=== PATIENT | female | born 1985 | race Hispanic/Latino ===

== ENCOUNTER 2018-04-16 18:58 | Emergency (ER) | payer MEDICAID, SELFPAY ==
[2018-04-16 19:37] LABS: Hemoglobin 8.9 g/dL (12.0-16.0); Mean Corpuscular HGB CONC 31.4 g/dL (32.0-36.0); Mean Corpuscular Volume 66.7 fL (78.0-98.0); Mean Platelet Volume 10.7 fL (7.4-10.4); Platelet Count 257 thou/uL (130-400); RBC Distribution Width 16.9 % (11.5-14.5); Red Blood Cell (RBC) Count 4.23 mill/uL (4.20-5.40); White Blood Cell (WBC) Count 8.9 thou/uL (4.8-10.8)
[2018-04-16 19:46] LABS: BHCG - Serum Negative (NEGATIVE); Pregs Control Background? CLEAR/WHITE (CLR/WHITE); Pregs Control Bar Appear? YES (CONTROL BAR)
[2018-04-16 19:53] LABS: #Eosinphils 0.1 thou/uL (0.0-0.7); #Lymphocytes 2.2 thou/uL (1.20-3.40); #Monocytes 0.5 thou/uL (0.11-0.59); #Neutrophils 6.1 thou/uL (1.40-6.50); %Basophils 0.5 % (0.0-1.0); %Eosinophils 1.1 % (0.0-10.0); %Lymphocytes 24.4 % (21.0-51.0); %Monocytes 5.2 % (0.0-10.0); %Neutrophils 68.9 % (42.0-75.0); Anisocytosis SLIGHT = 6-15 cells (100X) (0-5/hpf); Hypochromia SLIGHT = 6-15 cells (100X) (0-5/hpf); MDiff Complete? YES; Microcytosis SLIGHT = 6-15 cells (100X) (0-5/hpf); Ovalocytes SLIGHT = 2-5 cells (100X) (0-1/hpf); PLT Morphology Comment Appears Adequate; Tear Drops SLIGHT = 2-5 cells (100X) (0-1/hpf)
[2018-04-16 19:56] LABS: ALT (SGPT) 20 U/L (8-55); AST (SGOT) 20 U/L (5-34); Albumin 4.3 g/dL (3.5-5.0); Alkaline Phosphatase 105 U/L (40-150); Anion Gap 10 mmol/L (10-20); BUN (Urea Nitrogen) 12 mg/dL (7.0-18.7); Bilirubin, Total 0.4 mg/dL (0.2-1.2); Calc. Creatinine Clearance 0 mL/min (70-130); Calcium 9.4 mg/dL (7.8-10.44); Carbon Dioxide 25 mmol/L (22-29); Chloride 104 mmol/L (98-107); Estimated GFR-MDRD Greater than 90; Globulin 3.8 g/dL (2.4-3.5); Glucose 131 mg/dL (70-105); Lipase 27 U/L (8-78); Potassium 3.6 mmol/L (3.5-5.1); Protein, Total 8.1 g/dL (6.0-8.3); Sodium 135 mmol/L (136-145)
[2018-04-16 20:03] LABS: Bilirubin Negative (Negative); Blood, Urine Moderate (Negative); Clarity CLOUDY (Clear); Glucose, Urine (Dipstick) Negative (Negative); Leukocyte Large (Negative); Nitrite Negative (Negative); Protein, Urine (Dipstick) 30 mg/dL (Neg-Trace); Specific Gravity, Urine 1.022 (1.002-1.036); Urobilinogen 0.2 mg/dL (0.2-1.0)
[2018-04-16 20:06] LABS: Bacteria/HPF 2+ HPF (None Seen); Hyaline Casts/LPF 0-3 HYALINE CAST LPF (0-3 Hyaline); Pathc Cast-AUWi Flag 0.14 (0-2.49); WBC/HPF 21-50 HPF (0-3)
[2018-04-16 20:10] LABS: Yeast-AUWi Flag 85.9 (0-25.0)
[2018-04-16 20:25] LABS: Yeast-All Forms Rare HPF (None Seen)
== END 2018-04-16 22:15 | disposition home or self-care (01) ==
LOC: ERS 18:58
DX: N39.0 Urinary tract infection, site not specified (principal)
CPT/HCPCS: 36415; 80053; 81003; 81015; 83690; 84703; 85025; 87077; 87086; 87186; 99283

== ENCOUNTER 2019-01-10 09:28 | Day surgery (SDC) | payer OTHER ==
[2019-01-10] MEDS ORDERED: Acetaminophen 500 MG TAB PO PRN (09:49)
[2019-01-10 09:55] VITALS: BMI 31.9
[2019-01-10] MEDS ORDERED: Iron Sucrose Complex 500 MG in Sodium Chloride 0.9% 250 ML 250 ML IVPB SCH (10:15)
--- NOTE | 2019-01-10 10:27 | PDOC.FPROB ---
FMR OB H&P: HPI - History of Present Illness Chief Complaint: iron infusion Indentification: 33yo History of Present Illness: This is a 33 yo @ 14 wks by LMP presenting today for an iron infusion. She is a patient of [facility]. The patient reports feeling well. Denies NVD, fever, dizziness, lightheadedness, chest pain, SOB, abdominal pain. Patient denies CTX , LOF, vaginal bleeding, LE swelling, headache, vision changes. Patient has not yet felt baby move this . Primary Care Physician: Jon FMR OB H&P: Current - Care : 2 Para: 1001 Gestational age: 12 Due date: dating US pending Dating Criteria: sure LMP Total weight gain: 2lbs Course/Complications: anemia - OB Labs Blood type: O RH: negative Antibody Screen: positive HIV: negative RPR: negative HepBsAg: negative Rubella: immune Urine drug screen: negative Gonorrhea: unknown Chlamydia: unknown Pap Smear: has never had an abnormal pap A1c: 5.2 GBS: unknown H&H: 6.02/27 Platelets: 286 FMR OB H&P: History - Past Medical History PMH: none - OB History OB History: G1 - PLTCS @ 37 wks for breech, IUGR, oligo - 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, regular, no hx of STI, never had abnormal pap - Surgical History Sx History: Csection x 1 - Social History Social History: Denies tobacco, etoh, drugs - Family History Family History: No fhx of t21 or other inheritable or genetic disorders in patient or FOB FMR OB H&P: Medications - Current Home Medications: Medication Instructions Recorded Confirmed Type Pnv95/Iron Fum/Folic Acid 1 each PO DAILY 07/11/16 01/10/19 History [ Caplet] Allergies/Adverse Reactions: Allergies Allergy/AdvReac Type Severity Reaction Status Date / Time No Known Allergies Allergy Unverified 07/11/16 10:50 FMR OB H&P: ROS - Review of Systems General: denies: fever/chills, weight/appetite/sleep changes, night sweats, fatigue Eyes: denies: vision changes, double vision, scotomas, floaters ENT: denies: nasal congestion, rhinorrhea Cardiovascular: denies: chest pain, palpitation, edema Respiratory: denies: cough, congestion, shortness of breath Gastrointestinal: denies: abdominal pain, nausea, vomiting, diarrhea, constipation Genitourinary (Female): denies: dysuria, vaginal discharge, vaginal pain, vaginal bleeding Musculoskeletal: denies: pain, stiffness Neurologic: denies: seizures, weakness Integumentary: denies: rash, lesions FMR OB H&P: Vital Signs - Maternal Vital signs: Vital Signs - First Documented Temp 98.5 F 01/10/19 09:50 FMR OB H&P: Physical Exam - Physical Exam General: NAD, awake, alert and oriented HEENT: normocephalic and atraumatic, PERRLA, EOMI Neck: supple Chest: non-tender to palpation Heart: RRR, normal S1/S2, no murmurs/rubs/gallops General: CTAB, no respiratory distress, good air movement, no rales/rhonchi, no wheezing, no retractions Abdomen: soft, non-tender, bowel sound present Musculoskeletal: normal gait and station, FROM in all four extremities Neurological: no focal deficit Skin: no rash, good tugor, capillary refill <2 seconds Lymphatic: no unusual bruising or bleeding Psychiatric: intact recent and remote memory FMR OB H&P: A/P - Problem List (1) Anemia affecting Status: Acute Code(s): O99.019 - ANEMIA COMPLICATING , UNSPECIFIED TRIMESTER Disposition: Anemia of - IUP, 2nd trimester - H/H @ clinic on 01/06: .02/27 - Will order iron studies today to further work up anemia - pt asymptomatic at this time - Will begin iron infusion - FHT obtained with bedside US: FHR 144 AMA - aware, patient offered genetic screening and MFM for anatomy US in clinic Hx of septate uterus, prior csection - pt desires repeat c/s Obesity - pt counseled on weight gain in at clinic appointment - aware Case discussed with Dr. Castillo Discussion: Date/Time: 01/10/19 1027 This H&P was discussed with [] and [] who agree with the above documentation and plan. Addendum - Attending - Attending Attestation Date/Time: 01/10/19 1307 I personally evaluated the patient and discussed the management with Dr. Ambriz I agree with the History, Examination, Assessment and Plan documented above with any addition or exceptions noted below. Patient here for iron infusion due to presumed iron deficiency anemia. Unable to locate work up. Labs added prior to infusion. Will likely need follow up infusion in 2 to 4 wks. Iron studies, B12, path review, and electrophoresis pending. FHT present. Mother without any complaints other than fatigue and weakness. Monitor for side effects. Will pretreat. Ok to d/c once infusion complete. Follow up with PNC. Sondra
[2019-01-10 11:14] LABS: Iron 15 ug/dL (50-170); Iron Binding Capacity, Total 361 mcg/dL (265-497)
[2019-01-10 11:17] LABS: Anisocytosis SLIGHT = 6-15 cells (100X) (0-5/hpf); Band 2 % (5-11); Elliptocytes SLIGHT = 2-5 cells (100X) (0-1/hpf); Hemoglobin 6.5 g/dL (12.0-16.0); Hypochromia SLIGHT = 6-15 cells (100X) (0-5/hpf); Lymphocytes 4 % (21-51); MDiff Complete? YES; Mean Corpuscular HGB CONC 29.1 g/dL (32.0-36.0); Mean Corpuscular Volume 65.3 fL (78.0-98.0); Mean Platelet Volume 6.6 fL (7.4-10.4); Microcytosis SLIGHT = 6-15 cells (100X) (0-5/hpf); Monocytes 1 % (0-10); Neutrophil 93 % (42-75); Platelet Count 215 thou/uL (130-400); Platelet Morphology Comment Appears Adequate; RBC Distribution Width 19.6 % (11.5-14.5); Red Blood Cell (RBC) Count 3.42 mill/uL (4.20-5.40)
[2019-01-10 15:26] VITALS: BP 112/70; TEMP 98.1
--- NOTE | 2019-01-10 15:29 | PDOC.EVN ---
Event Note - Event Note Event Note: Tolerated iron infusion well. D/C with routine follow up at [facility].
[2019-01-14 16:10] LABS: Hemoglobin A 98.2 % (96.4-98.8); Hemoglobin A2 1.8 % (1.8-3.2); Hemoglobin F 0 % (0.0-2.0); Interpretation Note: (.)
== END 2019-01-10 15:50 | disposition home or self-care (01) ==
LOC: L&D/OP 09:28
PROVIDERS: ATTEND Family Medicine
DX: O99.012 Anemia complicating pregnancy, second trimester (principal); O99.89 Other specified diseases and conditions complicating pregnancy, childbirth and the puerperium; Q51.20 Other doubling of uterus, unspecified; O34.219 Maternal care for unspecified type scar from previous cesarean delivery; O99.212 Obesity complicating pregnancy, second trimester; E66.9 Obesity, unspecified; Z3A.14 14 weeks gestation of pregnancy; Z79.899 Other long term (current) drug therapy
CPT/HCPCS: 36415; 76815; 82607; 82728; 83021; 83540; 83550; 85007; 85027; 85060; 96361; 96365; 96366; 99283; J1756; J7050

== ENCOUNTER 2019-07-02 06:58 | Inpatient (IN) | payer MEDICAID, OTHER, SELFPAY ==
--- NOTE | 2019-07-02 06:27 | PDOC.FPROB ---
FMR OB H&P: HPI - History of Present Illness Chief Complaint: Scheduled rLTCS Indentification: 34 year old at 39.0 wks History of Present Illness: 34 year old at 39.0 wks by LMP/13.1 wk sono presents for scheduled repeat C/S. Patient denies vaginal bleeding, vaginal discharge, LoF. Endorses occasional contractions. Patient endorses movement. Primary Care Physician: DANA Webb FMR OB H&P: Current - Care : 2 Para: 1 Gestational age: 39.0 wks Due date: 07/09/2019 Dating Criteria: LMP/13.1 wk sono - OB Labs Blood type: O RH: positive Antibody Screen: negative HIV: negative RPR: negative HepBsAg: negative Rubella: non-immune Gonorrhea: negative Chlamydia: negative Pap Smear: NILM, neg HPV 1 hour gtt: 161 3 hour GTT: 81, 148, 152, 113 GBS: negative FMR OB H&P: History - Past Medical History PMH: Denies - OB History OB History: LTCS x1 at 37 wks for breech presentation, IUGR, oligo Septate uterus Anemia of s/p iron transfusion x2 Rubella non-immune AMA - 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 GC/CT negative. - Surgical History Sx History: LTCS x1 - Social History Social History: Denies alcohol, tobacco, or drug use - Family History Family History: Denies any significant family history FMR OB H&P: Medications - Current Home Medications: Medication Instructions Recorded Confirmed Type Pnv95/Iron Fum/Folic Acid 1 each PO DAILY 07/11/16 07/02/19 History [ Caplet] Acetaminophen [Tylenol] 1,000 mg PO Q6HR PRN #30 capsule 07/04/19 Rx Ferrous Sulfate [Feosol] 325 mg PO BID-WM #28 tab 07/04/19 Rx Ibuprofen [Motrin] 800 mg PO Q8HR #21 tab 07/04/19 Rx Simethicone [Mylicon Chewable] 80 mg PO Q4H PRN tab 07/04/19 Rx Allergies/Adverse Reactions: Allergies Allergy/AdvReac Type Severity Reaction Status Date / Time No Known Allergies Allergy Verified 05/14/19 12:05 FMR OB H&P: A/P - Problem List (1) Term Status: Acute Code(s): Z34.90 - ENCNTR FOR SUPRVSN OF NORMAL , UNSP, UNSP TRIMESTER (2) Anemia affecting Status: Acute Code(s): O99.019 - ANEMIA COMPLICATING , UNSPECIFIED TRIMESTER Disposition: 34 year old at 39.0 wks 1. Scheduled rLTCS - Routine pre-op care - Left lateral placenta - Prior C/S for breech presentation, IUGR, Oligo 2. Hx IUGR - Growth appropriate during current 3. AMA - Followed with MFM - Negative genetic screening 4. Septate uterus - Initial concern for IUGR, but growth has been appropriate 5. Anemia of - Iron deficiency - s/p iron transfusion x2 - On iron supplementation - AM CBC pending 6. Glucose intolerance - Abnormal 1h GTT - Normal 3h GTT Dispo: Admit to L&D. Discussion: Date/Time: 07/02/19 8184 This H&P was discussed with Dr. Everett who agrees with the above documentation and plan. Signature: Yuridia Webb DO PGY-3 Addendum - Attending - Attending Attestation Date/Time: 07/04/19 5496 I personally evaluated the patient and discussed the management with Dr. Webb the morning of admission. I agree with the History, Examination, Assessment and Plan documented above with any addition or exceptions noted below.
[2019-07-02] MEDS ORDERED: Acetaminophen 500 MG TAB PO PRN (07:15)
[2019-07-02] MEDS ORDERED: Promethazine HCl 25 MG/ML VIAL IM PRN ×2 (07:15→07:26)
[2019-07-02] MEDS ORDERED: hydrALAZINE 20 MG/ML VIAL SLOW IVP PRN ×2 (07:15→15:13)
[2019-07-02] MEDS ORDERED: Ondansetron PF 4 MG/2 ML Vial IVP PRN ×2 (07:15→07:26)
[2019-07-02] MEDS ORDERED: L&D-Morphine 4 MG/ML VIAL SLOW IVP PRN (07:26)
[2019-07-02] MEDS ORDERED: diphenhydrAMINE 50 MG/ML VIAL IVP PRN (07:26)
[2019-07-02] MEDS ORDERED: Naloxone HCl 0.4 mg/ml Vial IV PRN (07:26)
[2019-07-02] MEDS ORDERED: Naloxone HCl 0.4 mg/ml Vial IVP PRN ×2 (07:26)
[2019-07-02] MEDS ORDERED: Ketorolac Tromethamine 30 MG/ML VIAL IVP PRN (07:26)
[2019-07-02] MEDS ORDERED: Meperidine HCl/PF 25 MG/ML VIAL SLOW IVP PRN (07:26)
[2019-07-02] MEDS ORDERED: Ondansetron HCl/PF 4 MG/2 ML Vial IVP PRN (07:26)
[2019-07-02] MEDS ORDERED: Promethazine HCl 25 MG SUPP PR PRN (07:26)
[2019-07-02] MEDS ORDERED: HYDROmorphone 2 MG/ML VIAL SLOW IVP PRN (07:26)
[2019-07-02] MEDS ORDERED: Communication Order-Pharmacy FS SCH (07:30)
[2019-07-02] MEDS ORDERED: Bicitra 30 ML UDCUP PO SCH (07:30)
[2019-07-02] MEDS ORDERED: CEFAZOLIN 2 GM in Premix Bag 1 BAG IVPB SCH (07:30)
[2019-07-02] MEDS ORDERED: Ketorolac Tromethamine 30 MG/ML VIAL IVP SCH (07:30)
[2019-07-02] MEDS ORDERED: MORPHINE 5 MG/10 ML PF VIAL ONE (07:36)
[2019-07-02] MEDS ORDERED: Oxytocin 10 UNITS/ML VIAL ONE ×2 (07:37→09:01)
[2019-07-02 07:41] LABS: Hemoglobin 12.5 g/dL (12.0-16.0); Mean Corpuscular Hemoglobin 28.9 pg (27.0-31.0); Mean Corpuscular Volume 84.9 fL (78.0-98.0); Mean Platelet Volume 10.1 fL (7.4-10.4); Platelet Count 216 thou/uL (130-400); RBC Distribution Width 18.4 % (11.5-14.5); Red Blood Cell (RBC) Count 4.32 mill/uL (4.20-5.40); White Blood Cell (WBC) Count 12.5 thou/uL (4.8-10.8)
[2019-07-02 08:13] LABS: HBSAg Index 0.13 S/CO (0-0.99); Hep B Surf Ag Non-Reactive S/CO (NonReactive); Syphilis Antibody Nonreactive (Nonreactive); Syphilis Antibody Index 0.05 S/CO (<1.00 Non-Reactive)
[2019-07-02] MEDS ORDERED: ePHEDrine/0.9% NaCl/PF SYRINGE 50 mg/10 ml ONE (08:13)
[2019-07-02] MEDS ORDERED: Ketorolac Tromethamine 30 MG/ML VIAL ONE ×2 (09:01→17:55)
[2019-07-02] MEDS ORDERED: NS / Oxytocin 40 units/1000ml 1,000 ML ONE (09:07)
[2019-07-02 09:35] VITALS: BMI 37.8
--- NOTE | 2019-07-02 13:44 | PDOC.EVN ---
Event Note - Event Note Event Note: 34 year old at 39.0 wks s/p rLTCS 4 hour post op note S: NAEO. Mom has no concerns, no pain. Not passing gas at this time O: VS- BPs stable aside from two elevated BPs in 140s. Rest in 130s, will monitor. No sxs. UO: 170cc since surgery PE: Gen- NAD CV: RRR Lungs: CTAB Abd: NT, ND Extrem: No edema A/P: Continue routine care. Continue IVF until advancing diet as tolerated.
[2019-07-02] MEDS: Lactated Ringer's 1,000 ML IV SCH ×2 (16:38→17:21)
[2019-07-02] MEDS: Simethicone Chewable 80 MG TAB PO PRN (17:21)
--- NOTE | 2019-07-02 17:32 | OP ---
DATE OF PROCEDURE: 07/02/2019 PROCEDURE PERFORMED: Repeat low transverse section. SURGEON: Isac Raymond MD [employer] DIRECTOR SURGEONS: Yuridia Webb DO; Aydee Lobo MD PROCTORING SURGEON: Daren Everett MD PREPROCEDURE DIAGNOSES: 1. Term single intrauterine at 39.0 weeks. 2. History of intrauterine growth restriction with appropriate growth during . 3. Advanced maternal age. 4. History of septate uterus. 5. Anemia of , status post iron infusion x2. 6. Glucose intolerance. POSTPROCEDURE DIAGNOSES: 1. Term single intrauterine at 39.0 weeks, delivered. 2. History of intrauterine growth restriction with appropriate growth during . 3. Advanced maternal age. 4. History of septate uterus. 5. Anemia of , status post iron infusion x2. 6. Glucose intolerance. ANESTHESIA: Spinal. QUANTITATIVE BLOOD LOSS: 550 mL. INDICATIONS FOR PROCEDURE: Ms. Liberty Malloy is a 34-year-old 2, para 1-0-0-1 at 39.0 weeks dated by her last menstrual period confirmed with 13.1- week ultrasound. She presented for a scheduled repeat . PROCEDURE IN DETAIL: After risks, benefits, and alternatives were discussed with the patient and she provided informed consent, the patient was taken to the operating room and spinal anesthesia was administered. She received preoperative antibiotics of cefazolin 2 g. The patient was then prepped and draped in usual sterile fashion. A Pfannenstiel incision was made along her previous incision and carried down to the level of fascia, which was sharply nicked. Subcutaneous fat was dissected off the fascia and the fascial incision was sharply extended in a curvilinear fashion using Treadwell scissors. Superior and inferior aspects of the rectus were elevated with Kayla clamps and removed, and the underlying rectus muscle was sharply and bluntly dissected free from the fascia. The rectus muscles were divided digitally and retracted manually. The peritoneum was tented using forceps and Metzenbaum scissors were used to sharply enter the peritoneum. The peritoneum was retracted manually. The Jaime O retractor was then placed providing optimal visualization of the lower uterine segment. A clean scalpel was used to make a lower uterine score, which was carried down to the midline. The uterine cavity was entered digitally and the hysterotomy was extended in the caudocranial fashion. Head was manually elevated to the level of the hysterotomy and was delivered through the hysterotomy with fundal pressure. The was delivered at 0825 hours with Apgars of 8 and 9. The infant did require blow-by oxygen during the initial transitional life phase. Cord blood was collected and sent for analysis. Placenta was then manually extracted and discarded. The hysterotomy was then reapproximated using a 0 Monocryl suture in a running locking fashion. Bleeding vessels were then addressed using 0 Monocryl [id number] stitches. The abdomen was inspected and noted to be free of clots. The fascia was then reapproximated using 0 PDS. Subcutaneous tissues were irrigated and all bleeders were addressed with Bovie cautery at this time. Subcutaneous tissues were reapproximated. The skin was then closed using a running 4-0 Monocryl stitch with Dermabond applied over the top of the incision. Counts were correct x3. No complications occurred during the procedure. The patient tolerated the procedure well and went to the after routine care and recovery. FINDINGS: 1. Grossly normal female infant born at 0825 hours with Apgars of 8 and 9 at 1 and 5 minutes respectively, requiring blow-by oxygen during the initial transitional life phase. 2. Septate uterus with minimal septation noted. 3. Grossly normal anatomy otherwise. 4. [place] catheter draining clear urine preoperatively and postoperatively. Dr. Everett was present proctoring the entire case. Job ID: [id number] [facility]
[2019-07-02] MEDS ORDERED: ePHEDrine 50 MG/ML VIAL ONE (17:55)
[2019-07-03] MEDS: Ibuprofen 800 MG TAB PO SCH ×4 (01:37→21:26)
[2019-07-03] MEDS: Simethicone Chewable 80 MG TAB PO PRN ×2 (04:43→21:26)
[2019-07-03] MEDS ORDERED: Sodium Chloride 0.9% 10 ML ONE (05:42)
[2019-07-03 05:54] LABS: #Eosinphils 0.1 thou/uL (0.0-0.7); #Lymphocytes 1.3 thou/uL (1.20-3.40); #Monocytes 0.4 thou/uL (0.11-0.59); #Neutrophils 5.8 thou/uL (1.40-6.50); %Basophils 0.6 % (0.0-1.0); %Eosinophils 0.8 % (0.0-10.0); %Lymphocytes 16.5 % (21.0-51.0); %Monocytes 5.5 % (0.0-10.0); %Neutrophils 76.7 % (42.0-75.0); Hemoglobin 10.9 g/dL (12.0-16.0); Mean Corpuscular HGB CONC 32.8 g/dL (32.0-36.0); Mean Corpuscular Hemoglobin 28.5 pg (27.0-31.0); Mean Corpuscular Volume 86.9 fL (78.0-98.0); Mean Platelet Volume 9.6 fL (7.4-10.4); Platelet Count 145 thou/uL (130-400); RBC Distribution Width 18.1 % (11.5-14.5); Red Blood Cell (RBC) Count 3.83 mill/uL (4.20-5.40); White Blood Cell (WBC) Count 7.6 thou/uL (4.8-10.8)
[2019-07-03] MEDS: Lactated Ringer's 1,000 ML IV SCH ×2 (07:44→15:12)
[2019-07-03] MEDS: Prenatal Vitamin 1 TAB PO SCH (08:41)
--- NOTE | 2019-07-03 08:46 | PDOC.PP ---
Post Progress Note Post Day #: 2 Subjective: NAEO. Patient reports minimal pain from incision. No concerns this morning. PO intake tolerated: yes Flatus: yes Ambulation: yes Vital Signs (12 hours) Temp Pulse Resp BP Pulse Ox 07/03/19 08:09 98.8 F 81 20 140/81 96 07/03/19 06:16 18 07/03/19 04:00 97.7 F 84 18 138/87 07/03/19 02:00 16 07/03/19 00:00 99.0 F 78 18 124/72 07/02/19 22:00 18 07/02/19 21:17 98.5 F 78 16 138/76 97 Weight Weight 99.79 kg - Physical Examination General: NAD Cardiovascular: no m/r/g, RRR Respiratory: clear to auscultation bilaterally Abdominal: + bowel sounds Skin: CS incision dry & intact, no rash Neurological: no gross focal deficits Psychiatric: A&Ox3, normal affect Result Diagrams: 07/03/19 05:45 Additional Labs: Post Labs Blood Type O POSITIVE 07/02/19 07:31 Hep Bs Antigen Non-Reactive S/CO (NonReactive) 07/02/19 07:31 - Assessment/Plan 34 year old s/p scheduled rLTCS on 07/03 1. s/p rLTCS, PPD 2 - routine care -Pain controlled with Ibuprofen and tylenol -Contraception plan: OCPs 2. Anemia of -Required iron transfusions during -Hb down to 10.9, will start on PO iron dispo: >2 midnights PCP: Dr. Webb Addendum - Attending - Attending Attestation Date/Time: 07/03/19 1250 I personally evaluated the patient and discussed the management with Dr. Lobo. I agree with the History, Examination, Assessment and Plan documented above with any addition or exceptions noted below.
[2019-07-03] MEDS ORDERED: Ferrous Sulfate 325 MG TAB PO SCH (09:00)
[2019-07-03] MEDS ORDERED: HYDROcodone/Acetaminophen 10/325 mg Tablet PO PRN (10:30)
[2019-07-03] MEDS: HYDROcodone/Acetaminophen 5/325 mg Tablet PO PRN (10:35)
[2019-07-03] MEDS ORDERED: Adacel (T-DAP) 0.5 ML SYRINGE IM ONE (15:13)
[2019-07-03] MEDS ORDERED: Measles/Mumps/Rubella 10 MCG/0.5 ML VIAL SC ONE (15:13)
[2019-07-03] MEDS: Ferrous Sulfate 325 MG TAB PO SCH (17:56)
[2019-07-04] MEDS: Lactated Ringer's 1,000 ML IV SCH ×2 (01:22→16:41)
[2019-07-04] MEDS: Ibuprofen 800 MG TAB PO SCH ×2 (05:24→15:13)
--- NOTE | 2019-07-04 07:04 | PDOC.PP ---
Addendum entered and electronically signed by Aydee Lobo MD 07/04/19 09:24 : A/P: -Manual recheck >140/90, will do PIH workup -Start antihypertensives Original Note: Post Progress Note Post Day #: 2 Subjective: NAEO. Patient reports feeling well. Pain well controlled. No concerns. Ready to go home. Denies GARY, vision changes, chest pain, SOB. PO intake tolerated: yes Flatus: yes Ambulation: yes Vital Signs (12 hours) Temp Pulse Resp BP Pulse Ox 07/04/19 05:20 98.8 F 77 16 138/72 07/03/19 23:55 98.2 F 70 16 156/73 H 07/03/19 19:11 99.5 F 81 12 144/87 H 97 Weight Weight 99.79 kg - Physical Examination Cardiovascular: no m/r/g, RRR Respiratory: clear to auscultation bilaterally Extremities: negative homans (B) Skin: CS incision dry & intact Neurological: no gross focal deficits Psychiatric: A&Ox3, normal affect Result Diagrams: 07/04/19 09:42 07/04/19 09:42 Additional Labs: Post Labs Blood Type O POSITIVE 07/02/19 07:31 Hep Bs Antigen Non-Reactive S/CO (NonReactive) 07/02/19 07:31 (1) Anemia affecting Code(s): O99.019 - ANEMIA COMPLICATING , UNSPECIFIED TRIMESTER Status : Acute (2) Term Code(s): Z34.90 - ENCNTR FOR SUPRVSN OF NORMAL , UNSP, UNSP TRIMESTER Status: Acute - Assessment/Plan 34 year old s/p scheduled rLTCS on 07/03 1. s/p rLTCS, PPD 2 - routine care -Pain controlled with Ibuprofen and tylenol and norco PRN -Contraception plan: OCPs -Bottle feeding 2. Anemia of -Required iron transfusions during -Hb down to 10.9, will start on PO iron 3. Elevated BPs -no preE in , absence of clinical sxs -will recheck manually dispo: >2 midnights. Likely home today pending BP recheck PCP: Dr. Webb Addendum - Attending - Attending Attestation Date/Time: 07/04/19 1151 I personally evaluated the patient and discussed the management with Dr. Lobo. I agree with the History, Examination, Assessment and Plan documented above with any addition or exceptions noted below.
[2019-07-04] MEDS: Prenatal Vitamin 1 TAB PO SCH (09:17)
[2019-07-04] MEDS: Ferrous Sulfate 325 MG TAB PO SCH (09:17)
[2019-07-04] MEDS: HYDROcodone/Acetaminophen 5/325 mg Tablet PO PRN (09:17)
[2019-07-04 09:57] LABS: #Eosinphils 0.1 thou/uL (0.0-0.7); #Lymphocytes 1.3 thou/uL (1.20-3.40); #Monocytes 0.3 thou/uL (0.11-0.59); %Basophils 0.4 % (0.0-1.0); %Lymphocytes 15.3 % (21.0-51.0); %Monocytes 3.5 % (0.0-10.0); %Neutrophils 79.8 % (42.0-75.0); Hemoglobin 11.9 g/dL (12.0-16.0); Mean Corpuscular Hemoglobin 28.6 pg (27.0-31.0); Mean Corpuscular Volume 86.8 fL (78.0-98.0); Mean Platelet Volume 9.7 fL (7.4-10.4); Platelet Count 169 thou/uL (130-400); RBC Distribution Width 18.2 % (11.5-14.5); Red Blood Cell (RBC) Count 4.14 mill/uL (4.20-5.40); White Blood Cell (WBC) Count 8.8 thou/uL (4.8-10.8)
[2019-07-04] MEDS ORDERED: Labetalol 100 MG TAB PO SCH (10:16)
[2019-07-04 10:24] LABS: ALT (SGPT) 14 U/L (8-55); AST (SGOT) 19 U/L (5-34); Albumin 3.1 g/dL (3.5-5.0); Alkaline Phosphatase 120 U/L (40-110); Anion Gap 12 mmol/L (10-20); BUN (Urea Nitrogen) 9 mg/dL (7.0-18.7); Bilirubin, Total 0.5 mg/dL (0.2-1.2); Calc. Creatinine Clearance 188 mL/min (70-130); Carbon Dioxide 26 mmol/L (22-29); Chloride 105 mmol/L (98-107); Estimated GFR-MDRD Greater than 90; Globulin 3.4 g/dL (2.4-3.5); Glucose 110 mg/dL (70-105); Potassium 3.7 mmol/L (3.5-5.1); Protein, Total 6.5 g/dL (6.0-8.3); Sodium 139 mmol/L (136-145)
[2019-07-04 11:59] LABS: Creatinine, Urine 106.54 mg/dL (47-110)
[2019-07-04] MEDS ORDERED: Calcium Gluconate 4.6 MEQ in Sodium Chloride 0.9% 100 ML IVPB PRN (15:13)
[2019-07-04] MEDS ORDERED: Magnesium Sulfate 20 GM/WATER 500 ML BAG IVPB SCH (15:15)
[2019-07-04] MEDS ORDERED: Magnesium Sulfate 4 GM in Sodium Chloride 0.9% 250 ML 250 ML IVPB SCH (15:30)
[2019-07-04] MEDS: Magnesium Sulfate 20 gm/500 ml 20 GM/500 ML BAG IVPB SCH (16:41)
[2019-07-04] MEDS: Labetalol 100 MG TAB PO SCH (21:00)
[2019-07-05] MEDS: Ibuprofen 800 MG TAB PO SCH ×3 (08:15→21:45)
[2019-07-05] MEDS: HYDROcodone/Acetaminophen 5/325 mg Tablet PO PRN (08:18)
[2019-07-05] MEDS: Ferrous Sulfate 325 MG TAB PO SCH ×2 (08:20→17:45)
[2019-07-05] MEDS: Labetalol 100 MG TAB PO SCH ×2 (08:20→21:43)
[2019-07-05] MEDS: Lactated Ringer's 1,000 ML IV SCH ×2 (08:22→17:45)
--- NOTE | 2019-07-05 10:16 | PDOC.PP ---
Post Progress Note Post Day #: 3 Subjective: Ayleen Silva seen at bedside this morning. She has no complaints. She was moved to the L&D unit yesterday to be started on Magnesium for 24 hours due to preE. Patient has been feeling well since starting mag. Denies any fever, chills, chest pain, dyspnea, n/v. PO intake tolerated: yes Flatus: yes Ambulation: yes Vital Signs (12 hours) Temp Pulse BP 07/05/19 08:20 70 155/77 H 07/05/19 07:00 98.3 F Weight Weight 99.79 kg - Physical Examination General: NAD Cardiovascular: no m/r/g, RRR Respiratory: clear to auscultation bilaterally, non-labored breathing Abdominal: + bowel sounds, lochia, no distention Neurological: no gross focal deficits Psychiatric: A&Ox3, normal affect Result Diagrams: 07/04/19 09:42 07/04/19 09:42 Additional Labs: Post Labs Blood Type O POSITIVE 07/02/19 07:31 Hep Bs Antigen Non-Reactive S/CO (NonReactive) 07/02/19 07:31 (1) Term Code(s): Z34.90 - ENCNTR FOR SUPRVSN OF NORMAL , UNSP, UNSP TRIMESTER Status: Acute - Assessment/Plan 34 year old s/p scheduled rLTCS on 07/03 1. s/p rLTCS, PPD 3 - routine care -Pain controlled with Ibuprofen and tylenol and norco PRN -Contraception plan: OCPs -Bottle feeding 2. PreEclampsia -Ur Prot/Cr ratio 0.42 on 07/04 -continue mag for a total of 24 hours -increasing labetalol to 200 mg po bid -most of the BPs were in the 140-150s systolic overnight 3. Anemia of -Required iron transfusions during -Hb down to 10.9, will start on PO iron dispo: >2 midnights. Likely home after 24 hours of mag and getting better control of BPs PCP: Dr. Webb Addendum - Attending - Attending Attestation Date/Time: 07/05/19 1101 I personally evaluated the patient and discussed the management with Dr. Thakkar. I agree with the History, Examination, Assessment and Plan documented above with any addition or exceptions noted below. BP controlled with medication. Mag therapy ongoing. Plan for home tomorrow.
[2019-07-05] MEDS ORDERED: Labetalol 100 MG TAB PO SCH (10:30)
[2019-07-05] MEDS: Magnesium Sulfate 20 gm/500 ml 20 GM/500 ML BAG IVPB SCH (12:07)
--- NOTE | 2019-07-05 12:56 | PDOC.EVN ---
Event Note - Event Note Event Note: 34 year old at 39.0 wks s/p rLTCS Mag check S: Mom has no concerns at this time, no pain. Resting comfortably. O: VS- BPs 143/78, will monitor. HR 70. UO: @ 250 PE: Gen- NAD CV: RRR Reflexes: DTR's 2+ in upper and lower extremities. Lungs: CTAB Abd: soft non-tender. Extrem: No edema. Negative homans sign. A/P: Continue routine care. Continue IVF until advancing diet as tolerated. Continue Magnesium until 1700 07/06.
[2019-07-05] MEDS: Prenatal Vitamin 1 TAB PO SCH (17:44)
[2019-07-06] MEDS: Ibuprofen 800 MG TAB PO SCH ×2 (04:27→05:24)
--- NOTE | 2019-07-06 06:14 | PDOC.PP ---
Post Progress Note Post Day #: 4 Subjective: Ayleen Malloy seen at bedside this morning. She is doing well, she has no complaints. States that her pain is well controlled. She is ready to be discharged today. She plans on following up with Dr. Sawant in 2 weeks at [facility]. Her baby will follow up in 2-3 days at [facility]. Her BPs have been well controlled overnight. Denies any fever, chills, chest pain, dyspnea, n/v. PO intake tolerated: yes Flatus: yes Ambulation: yes Vital Signs (12 hours) Temp Pulse Resp BP BP BP Pulse Ox 07/06/19 05:20 98.3 F 71 18 136/73 98 07/06/19 04:27 68 07/06/19 00:03 98.4 F 68 18 128/70 07/05/19 21:43 78 157/84 H 07/05/19 19:25 98.2 F 78 18 157/84 H 98 07/05/19 18:20 97.8 F 101 H 20 140/97 H 96 Weight Weight 99.79 kg - Physical Examination General: NAD Cardiovascular: no m/r/g, RRR Respiratory: clear to auscultation bilaterally, non-labored breathing Abdominal: + bowel sounds, lochia, no distention, appropriately TTP Skin: CS incision dry & intact, no rash Neurological: no gross focal deficits Psychiatric: A&Ox3, normal affect Result Diagrams: 07/04/19 09:42 07/04/19 09:42 Additional Labs: Post Labs Blood Type O POSITIVE 07/02/19 07:31 Hep Bs Antigen Non-Reactive S/CO (NonReactive) 07/02/19 07:31 (1) Term Code(s): Z34.90 - ENCNTR FOR SUPRVSN OF NORMAL , UNSP, UNSP TRIMESTER Status: Acute - Assessment/Plan 34 year old s/p scheduled rLTCS on 07/03 1. s/p rLTCS, PPD 4 - routine care -Pain controlled with Ibuprofen and tylenol and norco PRN -Contraception plan: OCPs -Bottle feeding -plan for d/c today and follow up with Dr. Webb or Dr. Sawant in 2 weeks 2. PreEclampsia -Ur Prot/Cr ratio 0.42 on 07/04 -continue mag for a total of 24 hours -increased labetalol to 200 mg po bid on 07/05 -most of the BPs were in the 130s systolic overnight 3. Anemia of -Required iron transfusions during -Hb down to 10.9, will start on PO iron dispo: plan for d/c today PCP: Dr. Webb Addendum - Attending - Attending Attestation Date/Time: 07/06/19 3892 I personally evaluated the patient and discussed the management with Dr. Thakkar. I agree with the History, Examination, Assessment and Plan documented above with any addition or exceptions noted below.
[2019-07-06] MEDS: Labetalol 100 MG TAB PO SCH (08:39)
[2019-07-06] MEDS: Prenatal Vitamin 1 TAB PO SCH (08:40)
[2019-07-06] MEDS: Ferrous Sulfate 325 MG TAB PO SCH (08:42)
[2019-07-06 08:43] VITALS: BP 145/91
[2019-07-06 10:36] VITALS: TEMP 97.8
== END 2019-07-06 11:40 | disposition home or self-care (01) | DRG 788 ==
LOC: L&D 06:58 → 3SW 15:23 → L&D 07-04 16:31 → 3SW 07-05 18:24
PROVIDERS: ADMIT Family Medicine; ATTEND Family Medicine
PROC: 10D00Z1 Extraction of Products of Conception, Low, Open Approach (ICD-10-PCS; principal; 2019-07-02)
DX: O34.211 Maternal care for low transverse scar from previous cesarean delivery (principal); O34.03 Maternal care for unspecified congenital malformation of uterus, third trimester; E74.39 Other disorders of intestinal carbohydrate absorption; O99.02 Anemia complicating childbirth; D50.9 Iron deficiency anemia, unspecified; O14.95 Unspecified pre-eclampsia, complicating the puerperium; Z3A.39 39 weeks gestation of pregnancy; Z37.0 Single live birth; Q51.20 Other doubling of uterus, unspecified
CPT/HCPCS: 36415; 80053; 82570; 84156; 85025; 85027; 86780; 86850; 86900; 86901; 87340; J0690; J1885; J2274; J2590; J3475; J3490; J7050

== ENCOUNTER 2022-04-09 12:45 | Emergency (ER) | payer MEDICAID, SELFPAY ==
[2022-04-09 13:52] LABS: #Eosinphils 0.1 thou/uL (0.0-0.7); #Lymphocytes 1.1 thou/uL (1.20-3.40); #Monocytes 0.5 thou/uL (0.11-0.59); #Neutrophils 5.6 thou/uL (1.40-6.50); %Eosinophils 1.2 % (0.0-10.0); %Lymphocytes 15.1 % (21.0-51.0); %Monocytes 6.3 % (0.0-10.0); %Neutrophils 77.4 % (42.0-75.0); Hemoglobin 8.8 g/dL (12.0-16.0); Mean Corpuscular HGB CONC 30.6 g/dL (32.0-36.0); Mean Corpuscular Hemoglobin 22.3 pg (27.0-31.0); Mean Corpuscular Volume 72.8 fL (78.0-98.0); Mean Platelet Volume 10.6 fL (7.4-10.4); Platelet Count 276 thou/uL (130-400); RBC Distribution Width 16.3 % (11.5-14.5); Red Blood Cell (RBC) Count 3.94 mill/uL (4.20-5.40); White Blood Cell (WBC) Count 7.2 thou/uL (4.8-10.8)
[2022-04-09 14:10] LABS: Hypochromia SLIGHT = 6-15 cells (100X) (0-5/hpf); MDiff Complete? YES; Microcytosis SLIGHT = 6-15 cells (100X) (0-5/hpf); Ovalocytes SLIGHT = 2-5 cells (100X) (0-1/hpf); Platelet Morphology Comment Appears Adequate; Polychromasia SLIGHT = 2-3 cells (100X) (0-2/hpf); Stomatocytes SLIGHT = 2-5 cells (100X) (0-1/hpf); Target Cells SLIGHT = 2-5 cells (100X) (0-1/hpf)
[2022-04-09 14:11] LABS: ALT (SGPT) 16 U/L (8-55); AST (SGOT) 13 U/L (5-34); Alkaline Phosphatase 93 U/L (40-110); Anion Gap 13 mmol/L (10-20); BUN (Urea Nitrogen) 8 mg/dL (7.0-18.7); Bilirubin, Total 0.6 mg/dL (0.2-1.2); Calc. Creatinine Clearance 0 mL/min (70-130); Calcium 9.1 mg/dL (7.8-10.44); Carbon Dioxide 24 mmol/L (22-29); Chloride 102 mmol/L (98-107); Estimated GFR 113; Globulin 3.9 g/dL (2.4-3.5); Glucose 119 mg/dL (70-105); Potassium 3.2 mmol/L (3.5-5.1); Protein, Total 7.9 g/dL (6.0-8.3); Sodium 136 mmol/L (136-145)
[2022-04-09 16:54] LABS: Bilirubin Negative (Negative); Blood, Urine 1+ (Negative); Clarity Turbid (Clear); Glucose, Urine (Dipstick) Normal (Negative); Ketone, Urine Negative (Negative); Leukocyte 500 Leu/uL (Negative); Nitrite Negative (Negative); Protein, Urine (Dipstick) 50 mg/dL (Neg-Trace); Specific Gravity, Urine 1.011 (1.002-1.036); Urobilinogen Normal mg/dL (Less than 2)
[2022-04-09 17:10] LABS: Bacteria/HPF 3+ HPF (None Seen); RBC/HPF 0-3 HPF (0-3); Squamous Epithelial 0-3 HPF (0-3); WBC/HPF 21-50 HPF (0-3)
== END 2022-04-09 17:25 | disposition home or self-care (01) ==
LOC: ERS 12:45
DX: O20.0 Threatened abortion (principal); O23.41 Unspecified infection of urinary tract in pregnancy, first trimester; N39.0 Urinary tract infection, site not specified; Z3A.01 Less than 8 weeks gestation of pregnancy
CPT/HCPCS: 36415; 76856; 80053; 81003; 81015; 84702; 85025; 86900; 86901; 87077; 87086; 87186

== ENCOUNTER 2024-03-31 08:45 | Emergency (ER) | payer MEDICAID, SELFPAY ==
[2024-03-31] MEDS ORDERED: Ondansetron PF 4 MG/2 ML Vial ONE (10:14)
[2024-03-31] MEDS ORDERED: Ketorolac Tromethamine 30 MG (1 mL) VIAL ONE (10:14)
[2024-03-31 10:16] LABS: #Basophils Less than 0.03 10x3/uL (0.0-0.2); %Basophils 0.3 % (0.0-1.0); %Eosinophils 0.8 % (0.0-10.0); %Lymphocytes 6.8 % (21.0-51.0); %Monocytes 9.4 % (0.0-10.0); %Neutrophils 82.4 % (42.0-75.0); Hematocrit 28.2 % (36.0-47.0); Hemoglobin 8.3 g/dL (12.0-16.0); Mean Corpuscular HGB CONC 29.4 g/dL (32.0-36.0); Mean Corpuscular Hemoglobin 21.6 pg (27.0-31.0); Mean Corpuscular Volume 73.4 fL (78.0-98.0); Mean Platelet Volume 11.4 fL (7.4-10.4); Platelet Count 220 10x3/uL (130-400); RBC Distribution Width 16.9 % (11.5-14.5); Red Blood Cell (RBC) Count 3.84 mill/uL (4.20-5.40)
[2024-03-31 10:56] LABS: Anisocytosis SLIGHT = 6-15 cells HPF (0-5); Hypochromia SLIGHT = 6-15 cells HPF (0-5); Microcytosis SLIGHT = 6-15 cells HPF (0-5); Ovalocytes SLIGHT = 2-5 cells HPF (0-1); Platelet Adequacy Comment Platelets Normal; Polychromasia SLIGHT = 2-3 cells HPF (0-2)
[2024-03-31 11:09] LABS: ALT (SGPT) 14 U/L (8-55); AST (SGOT) 16 U/L (5-34); Albumin 3.7 g/dL (3.5-5.0); Alkaline Phosphatase 75 U/L (40-110); Anion Gap 13 mmol/L (10-20); BUN (Urea Nitrogen) 11 mg/dL (7.0-18.7); Bilirubin, Total 0.7 mg/dL (0.2-1.2); Calc. Creatinine Clearance 0 mL/min (70-130); Calcium 8.8 mg/dL (7.8-10.44); Carbon Dioxide 21 mmol/L (22-29); Chloride 103 mmol/L (98-107); Estimated GFR 113; Globulin 3.9 g/dL (2.4-3.5); Glucose 98 mg/dL (70-105); Potassium 3.5 mmol/L (3.5-5.1); Protein, Total 7.6 g/dL (6.0-8.3); Sodium 133 mmol/L (136-145)
[2024-03-31 12:15] LABS: Influenza A by NAA Not Detected (NotDetected); Influenza B by NAA Not Detected (NotDetected); SARS-CoV-2 NAA Rapid Test Not Detected (NotDetected)
[2024-03-31] MEDS ORDERED: Vancomycin 1 GM/200 ML (FROZEN) BAG ONE (15:00)
[2024-03-31] MEDS ORDERED: cefTRIAXone (ROCEPHIN) 2 GM VIAL ONE (15:00)
[2024-03-31] MEDS ORDERED: Sodium Chloride 0.9% 100 ML ONE (15:00)
[2024-03-31] MEDS ORDERED: Acetaminophen 500 MG TAB ONE (16:22)
[2024-03-31 16:32] LABS: CSF, Glucose 61 mg/dl (40-70); CSF, Protein 15.2 mg/dL (15-40)
[2024-03-31 17:44] LABS: CSF Source CSF; Tube # 4
[2024-03-31 17:45] LABS: CSF Source CSF; Clarity Clear (Clear); Tube # 2
[2024-03-31 18:42] LABS: Color Of CSF Supernatant COLORLESS (Colorless); Tube # 1; Unspun CSF Color COLORLESS (Colorless)
== END 2024-03-31 18:35 | disposition home or self-care (01) ==
LOC: ERS 08:45
DX: M54.2 Cervicalgia (principal); R50.9 Fever, unspecified
CPT/HCPCS: 36415; 62270; 70450; 71045; 80053; 82945; 84157; 85025; 87040; 87070; 87081; 87205; 87430; 89051; 96374; 96375; J0696; J1885; J2405; J3370-JW; J3490

== ENCOUNTER 2024-04-11 08:46 | Emergency (ER) | payer SELFPAY | END 2024-04-11 10:07 | disposition home or self-care (01) | LOC: ERS 08:46 | DX: M79.89 Other specified soft tissue disorders (principal); R60.0 Localized edema | CPT/HCPCS: 99282 ==

== ENCOUNTER 2024-04-16 08:13 | Emergency (ER) | payer SELFPAY ==
[2024-04-16] MEDS ORDERED: Iopamidol-370 76% 500 ML MDV (1 ML CHARGE) ONE (09:09)
[2024-04-16 10:26] LABS: #Basophils 0.03 10x3/uL (0.0-0.2); %Basophils 0.6 % (0.0-1.0); %Eosinophils 1.4 % (0.0-10.0); %Lymphocytes 22.7 % (21.0-51.0); %Neutrophils 67.9 % (42.0-75.0); Hematocrit 23.4 % (36.0-47.0); Hemoglobin 6.6 g/dL (12.0-16.0); Mean Corpuscular HGB CONC 28.2 g/dL (32.0-36.0); Mean Corpuscular Hemoglobin 20.4 pg (27.0-31.0); Mean Corpuscular Volume 72.2 fL (78.0-98.0); Mean Platelet Volume 10.2 fL (7.4-10.4); Platelet Count 386 10x3/uL (130-400); RBC Distribution Width 18.5 % (11.5-14.5); Red Blood Cell (RBC) Count 3.24 mill/uL (4.20-5.40)
[2024-04-16 10:38] LABS: BHCG - Serum Negative (NEGATIVE); Pregs Control Background? CLEAR/WHITE (CLR/WHITE); Pregs Control Bar Appear? YES (CONTROL BAR)
[2024-04-16 10:46] LABS: ALT (SGPT) 19 U/L (8-55); AST (SGOT) 22 U/L (5-34); Albumin 3.4 g/dL (3.5-5.0); Alkaline Phosphatase 89 U/L (40-110); Anion Gap 11 mmol/L (10-20); BUN (Urea Nitrogen) 11 mg/dL (7.0-18.7); Bilirubin, Total 0.5 mg/dL (0.2-1.2); Calc. Creatinine Clearance 0 mL/min (70-130); Calcium 8.8 mg/dL (7.8-10.44); Carbon Dioxide 24 mmol/L (22-29); Chloride 109 mmol/L (98-107); Estimated GFR 113; Globulin 3.6 g/dL (2.4-3.5); Glucose 93 mg/dL (70-105); Lipase 18 U/L (8-78); Potassium 4.1 mmol/L (3.5-5.1); Sodium 140 mmol/L (136-145)
[2024-04-16 10:59] LABS: Bilirubin Negative (Negative); Blood, Urine Negative (Negative); CAUTI Indications for Culture Dysuria,urgency,freq; Clarity Clear (Clear); Glucose, Urine (Dipstick) Normal (Negative); Ketone, Urine Negative (Negative); Leukocyte Negative Leu/uL (Negative); Nitrite Negative (Negative); Protein, Urine (Dipstick) Negative (Neg-Trace); RBC/HPF 0-3 HPF (0-3); Urobilinogen Normal mg/dL (Less than 2); WBC/HPF 0-3 HPF (0-3)
[2024-04-16 11:00] LABS: Bacteria/HPF Rare-Few HPF (None Seen); Urine Culture Reflex No No
[2024-04-16] MEDS ORDERED: cefTRIAXone (ROCEPHIN) 1 GM VIAL ONE (11:48)
[2024-04-16] MEDS ORDERED: Sodium Chloride 0.9% 100 ML ONE (11:48)
[2024-04-16 11:55] LABS: Hypochromia SLIGHT = 6-15 cells HPF (0-5); Microcytosis SLIGHT = 6-15 cells HPF (0-5); Ovalocytes SLIGHT = 2-5 cells HPF (0-1); Platelet Adequacy Comment Platelets Normal; Polychromasia SLIGHT = 2-3 cells HPF (0-2)
== END 2024-04-16 11:54 | disposition home or self-care (01) ==
LOC: ERS 08:13
DX: L03.311 Cellulitis of abdominal wall (principal); L02.211 Cutaneous abscess of abdominal wall; Z75.8 Other problems related to medical facilities and other health care
CPT/HCPCS: 36415; 74177; 80053; 81001; 83690; 84703; 85025; J0696; J3490; Q9967

== ENCOUNTER 2025-05-18 21:06 | Emergency (ER) | payer SELFPAY ==
[2025-05-19] MEDS ORDERED: Ketorolac Tromethamine 30 MG (1 mL) VIAL ONE (01:33)
== END 2025-05-19 01:44 | disposition home or self-care (01) ==
LOC: ERS 21:06
DX: S82.61XA Displaced fracture of lateral malleolus of right fibula, initial encounter for closed fracture (principal); W01.0XXA Fall on same level from slipping, tripping and stumbling without subsequent striking against object, initial encounter
CPT/HCPCS: 96372; 99283; J1885

== ENCOUNTER 2025-07-07 02:39 | Emergency (ER) | payer SELFPAY ==
[2025-07-07 03:10] LABS: Bacteria/HPF None Seen HPF (None Seen); CAUTI Indications for Culture Pelvic or flank pain; Glucose, Urine (Dipstick) Normal (Negative); Leukocyte 250 Leu/uL (Negative); Protein, Urine (Dipstick) Negative (Neg-Trace); Specific Gravity, Urine 1.012 (1.002-1.036)
[2025-07-07 03:11] LABS: Pregnancy Test - Urine (BHCG) Negative (Negative); Pregu Control Background? CLEAR/WHITE (CLR/WHITE); Pregu Control Bar Appear? YES (CONTROL BAR); Urine Culture Reflex No No
[2025-07-07 03:44] LABS: ALT (SGPT) 10 U/L (Less than 34); AST (SGOT) 28 U/L (11-34); Albumin 3.9 g/dL (3.1-4.5); Alkaline Phosphatase 103 U/L (40-110); Anion Gap 12 mmol/L (10-20); BUN (Urea Nitrogen) 11 mg/dL (7.0-18.7); Bilirubin, Total 0.3 mg/dL (0.3-1.2); Calc. Creatinine Clearance 0 mL/min (70-130); Calcium 8.6 mg/dL (7.8-10.44); Carbon Dioxide 23 mmol/L (22-29); Chloride 107 mmol/L (98-107); Globulin 3.9 g/dL (2.4-3.5); Glucose 123 mg/dL (70-105); Lipase 26 U/L (8-78); Potassium 3.6 mmol/L (3.5-5.1); Sodium 138 mmol/L (136-145)
[2025-07-07 03:49] LABS: #Basophils 0.06 10x3/uL (0.0-0.2); #Eosinophils 0.24 10x3/uL (0.0-0.7); #Monocytes 0.39 10x3/uL (0.11-0.59); #Neutrophils 5.09 10x3/uL (1.40-6.50); %Basophils 0.8 % (0.0-1.0); %Eosinophils 3.4 % (0.0-10.0); %Lymphocytes 18.7 % (21.0-51.0); %Monocytes 5.5 % (0.0-10.0); %Neutrophils 71.3 % (42.0-75.0); Hematocrit 28.3 % (36.0-47.0); Hemoglobin 7.5 g/dL (12.0-16.0); Mean Corpuscular Hemoglobin 18.3 pg (27.0-31.0); Mean Corpuscular Volume 69.2 fL (78.0-98.0); Platelet Count 281 10x3/uL (130-400); Red Blood Cell (RBC) Count 4.09 mill/uL (4.20-5.40); White Blood Cell (WBC) Count 7.13 10x3/uL (4.8-10.8)
[2025-07-07] MEDS ORDERED: Ketorolac Tromethamine 30 MG (1 mL) VIAL ONE (03:49)
== END 2025-07-07 04:30 | disposition home or self-care (01) ==
LOC: ERS 02:39
DX: K80.20 Calculus of gallbladder without cholecystitis without obstruction (principal); D64.9 Anemia, unspecified
CPT/HCPCS: 76705; 80053; 81001; 81025; 83690; 85025; 96374; J1885